=== PATIENT | male | born 1970 | race Caucasian/White ===

== ENCOUNTER 2019-06-12 19:15 | Emergency (ER) | payer OTHER ==
[~2019-06-12] VITALS: Ht 170.2 cm; Wt 75.4 kg
[~2019-06-12 19:15] MED LIST: CEPH-443 PO; IBUP-1542 PO; SULF1TAB31 PO
[2019-06-12 19:21] VITALS: BP 141/85; PULSE 74; RESP 18; Ht 170.2 cm; Wt 75.4 kg
[2019-06-12] MEDS ORDERED: BACITRACIN 0.5%/ZINC 28.35 GM OINT TOP ONE (21:30)
--- NOTE | 2019-06-12 21:32 | ERD ---
ER Documentation Chief Complaint Chief Complaint RIGHT 3RD TOE PAIN X3DAYS HPI 48-year-old male resents to ED complaining of pain on his right foot third toe. He reports the pain is been present for over a week. He reports the big toe on his right foot was similar pain with infection however it healed by itself. He reports the lateral aspect of his foot had a similar lesion with similar pain which healed wounds on his well. He reports these happened about a month ago. He reports that this lesion has been spreading around his foot. He denies any injury or trauma to the foot. He does not have a primary care provider and he does not know of any medical problems that he may have. He is in the process of obtaining a primary care provider. He reports yellow discharge from this lesion. He denies 6 out of 10 pain. He states the pain is worse with walking and better with rest. He denies any fevers or chills. He states this lesion is about half an inch thick. ROS All systems reviewed and are negative except as per history of present illness. Medications Home Meds Active Scripts Sulfamethoxazole/Trimethoprim* (Bactrim Ds* Tablet) 1 Each Tablet, 1 TAB PO BID, #14 TAB Prov:MARY HOLLY PA-C 06/12/19 Cephalexin* (Keflex*) 500 Mg Capsule, 500 MG PO BID for 7 Days, #14 CAP Prov:MARY HOLLY PA-C 06/12/19 Ibuprofen* (Motrin*) 600 Mg Tab, 600 MG PO Q6H PRN for PAIN AND OR ELEVATED TEMP, #30 TAB Prov:MARY HOLLY PA-C 06/12/19 PMhx/Soc Medical and Surgical Hx: pt denies Medical Hx, pt denies Surgical Hx Hx Alcohol Use: No Hx Substance Use: No Hx Tobacco Use: No Smoking Status: Never smoker FmHx Family History: No diabetes Physical Exam Vitals Vital Signs Date Temp Pulse Resp B/P (MAP) Pulse Ox O2 O2 Flow FiO2 Time Delivery Rate 06/12/19 98.5 74 18 141/85 99 19:21 (103) Physical Exam Const: No acute distress Head: Atraumatic Resp: Clear to auscultation bilaterally Cardio: Regular rate and rhythm, Abd: Soft, non tender, non distended. Skin: Half inch lesion on third toe on right foot. Tenderness with range of motion. Good 2+ pulses. Good range of motion. Yellow-colored discharge present. Neur: Awake and alert Psych: Normal Mood and Affect Results 24 hrs Current Medications Medications Dose Sig/Daniel Start Time Status Last (Trade) Ordered Route PRN Stop Time Admin Dose Reason Admin Bacitracin 1 applic ONCE ONCE 06/12/19 DC (Bacitracin TOP 21:30 0.5%/ Zinc 06/12/19 21:31 Oint) Procedures/MDM ED COURSE: The patient was stable throughout ED course. I kept the patient informed of laboratory and diagnostic imaging results throughout the ED course. PROCEDURES: ED wound irrigation ED dressing application MEDICATIONS GIVEN: Bacitracin Patient tolerated medication well with no adverse reactions. Patient reported improvement in pain. MEDICAL DECISION MAKING: Patient is a 48-year-old male complaining of a lesion on his right foot third toe. At this time I have low suspicion for deep tracking infection, sepsis, l ymphangitis. I have low suspicion for fracture or tendon injury. Patient has had these lesions on his feet for over a month now. Lesions have been spreading different toes. Patient reports yellowish discharge and tenderness. At this time I think patient is suffering from cellulitis infection. I will treat the patient with Bactrim, Keflex and Motrin for pain. Patient was given instructions to return back in 2 days for wound recheck. Patient was given strict return ED precautions symptoms persist or worsen. Patient was given a list of local community clinics for him to call in order to establish care with a primary care provider. All questions answered. Patient agreed with the plan. Vital signs were reviewed. Patient is afebrile. Patient was not hypoxic. Patient was hemodynamically stable. Patient was told to follow up with primary care for further care and management. PRESCRIPTION: Keflex, Bactrim, Motrin DISCHARGE: At this time, patient is stable for discharge and outpatient management. I have instructed the patient to follow-up with their primary care physician in 1-2 days. I have discussed with the patient the possibility of needing to see a specialist for further workup and imaging studies if symptoms persist. I have instructed the patient to promptly return to the ER for any new or worsening symptoms including increased pain, fever, nausea, vomiting, weakness or LOC. The patient expressed understanding of and agreement with this plan. All questions were answered. Home care instructions were provided. Disclaimer: Inadvertent spelling and grammatical errors are likely due to EHR/dictation software use and do not reflect on the overall quality of patient care. Also, please note that the electronic time recorded on this note does not necessarily reflect the actual time of the patient encounter. Departure Diagnosis: Primary Impression: Toe infection Condition: Fair Patient Instructions: Cellulitis Referrals: [facility] Usted se milligan hecho un examen mdico de control que le indica que no est en lukasz condicin que requiera tratamiento urgente en el Departamento de Emergencia. Un estudio ms profundo y el tratamiento de jarrett condicin pueden esperar sin ningn riesgo hasta que usted sea atendida/o en el consultorio de jarrett mdico o lukasz clnica. Es responsabilidad suya arreglar lukasz daron para el seguimiento del vasu. MANEJO DE CONDICIONES NO URGENTES EN EL FUTURO 1) Si usted tiene un mdico de atencin primaria: Usted debera llamar a jarrett mdico de atencin primaria antes de venir al departamento de emergencia. Despus de las horas de consultorio, jarrett doctor o jarrett asociado/a est disponible por telfono. El mdico o enfermero de randolph en el servicio telefnico puede asesorarle por obdulia medio para atender el problema, o vasu contrario se puede programar lukasz daron. 2) Si usted no tiene un mdico de atencin primaria: Llame al mdico o clnica de referencia que aparece abajo ramsey las horas de consultorio para hacer lukasz daron para que le vean. CLINICAS: [facility] [phone] [facility] [phone] [facility] [phone] [facility] [phone] [address] [facility] [phone] [address] [facility] [phone] [facility] () Nery se milligan hecho un examen mdico de control que le indica que no est en lukasz condicin que requiera tratamiento urgente en el Departamento de Emergencia. Un estudio ms profundo y el tratamiento de jarrett condicin pueden esperar sin ningn riesgo hasta que usted sea atendida/o en el consultorio de jarrett mdico o lukasz clnica. Es responsabilidad suya arreglar lukasz daron para el seguimiento del vasu. MANEJO DE CONDICIONES NO URGENTES EN EL FUTURO 1) Si usted tiene un mdico de atencin primaria: Usted debera llamar a jarrett mdico de atencin primaria antes de venir al departamento de emergencia. Despus de las horas de consultorio, jarrett doctor o jarrett asociado/a est disponible por telfono. El mdico o enfermero de randolph en el servicio telefnico puede asesorarle por obdulia medio para atender el problema, o vasu contrario se puede programar lukasz daron. 2) Si usted no tiene un mdico de atencin primaria: Llame al mdico o condado institucions de referencia que aparece abajo ramsey las horas de consultorio para hacer lukasz daron para que le vean. SI USTED NO PUEDE PAGAR PARA GERALDINE UN MEDICO puede ir a: [facility] [address] [place] [address] [facility] [address] [place] [address] [facility] [address] [place] [address] [facility] [address] [place] [address] Additional Instructions: Return back to 2 days for wound recheck Llame al doctor KENTRELL y silver lukasz DARON PARA DENTRO DE 1-2 GASPAR.Dgale a la secretaria que nosotros le instruimos hacer esta daron.Avise o llame si jarrett condicin se empeora antes de la daron. Regresa aqui si peor o no mejor. MARY HOLLY PA-C Jun 12, 2019 21:32
== END 2019-06-12 23:03 | disposition home or self-care (01) ==
LOC: FTE 19:15
DX: L08.9 Local infection of the skin and subcutaneous tissue, unspecified (principal)
CPT/HCPCS: 99283